=== PATIENT | female | born 1980 | race Caucasian/White ===

== ENCOUNTER 2018-01-19 11:03 | Emergency (ER) | payer BC ==
[~2018-01-19] VITALS: Ht 172.7 cm; Wt 112.0 kg
[2018-01-19] MEDS ORDERED: LIDOcaine 1.5% w/epinephrine 1:200,000 5ml ampul IJ ONE (12:15)
[2018-01-19] MEDS ORDERED: ibuprofen tablet 400 MG TABLET PO ONE (13:00)
[2018-01-19] MEDS ORDERED: acetaminophen 325mg tablet PO ONE (13:00)
[2018-01-19 13:23] VITALS: BP 161/83
[2018-01-19] MEDS ORDERED: cephalexin 500mg capsule PO ONE (13:55)
[2018-01-19] MEDS ORDERED: CEPH-572 PO (14:23)
[2018-01-19] MEDS ORDERED: HYDR-565 PO (14:26)
== END 2018-01-19 14:47 | disposition home or self-care (01) ==
LOC: ER 11:04
DX: S62.636A Displaced fracture of distal phalanx of right little finger, initial encounter for closed fracture (principal); S61.216A Laceration without foreign body of right little finger without damage to nail, initial encounter; S61.312A Laceration without foreign body of right middle finger with damage to nail, initial encounter; S63.696A Other sprain of right little finger, initial encounter; W31.2XXA Contact with powered woodworking and forming machines, initial encounter; Y93.89 Activity, other specified; Y92.89 Other specified places as the place of occurrence of the external cause; Y99.9 Unspecified external cause status
CPT/HCPCS: 12001; 73130; 99284; A6222; A6255; A6449; J3490; 29130